=== PATIENT | female | born 1980 | race Caucasian/White ===

== ENCOUNTER 2021-06-16 07:38 | Outpatient (REF) | payer OTHER, SELFPAY ==
[2021-06-16 08:14] LABS: COVID-19 Test Negative (Negative)
== END 2021-06-16 07:39 | disposition home or self-care (01) ==
LOC: HO.LAB 07:38
PROVIDERS: Visit Provider Internal Medicine
DX: Z20.822 Contact with and (suspected) exposure to COVID-19 (principal)
CPT/HCPCS: 36415; 87635; C9803

== ENCOUNTER 2021-06-19 12:57 | Outpatient (REF) | payer OTHER, SELFPAY ==
[2021-06-19 14:04] LABS: COVID-19 Test Negative (Negative)
== END 2021-06-19 12:58 | disposition home or self-care (01) ==
LOC: HO.LAB 12:57
PROVIDERS: Visit Provider Internal Medicine
DX: Z20.822 Contact with and (suspected) exposure to COVID-19 (principal)
CPT/HCPCS: 36415; 87635; C9803